=== PATIENT | female | born 1985 | race Two or more races ===

== ENCOUNTER 2021-02-19 07:14 | Outpatient (REF) | payer OTHER, SELFPAY ==
--- NOTE | 2021-02-19 07:41 | ECG_ITS ---
Test Reason : Z01.818 PREOP Blood Pressure : / mmHG Vent. Rate : 066 BPM Atrial Rate : 066 BPM P-R Int : 136 ms QRS Dur : 076 ms QT Int : 400 ms P-R-T Axes : 024 028 027 degrees QTc Int : 419 ms Normal sinus rhythm Normal ECG No previous ECGs available Referred By: Tammy Hagan Electronically Signed By:HIRA ONEIL MD
[2021-02-19 08:11] LABS: MANUAL DIFF FLAG NO
[2021-02-19 08:14] LABS: Basophils Percent Auto 0.5 % (0-2); Eosinophils Absolute Auto 0.1 X10*3/uL (0.0-0.4); Eosinophils Percent Auto 1.3 % (0-4); Hematocrit 39.5 % (37-47); Hemoglobin 12.9 g/dl (12.0-16.0); Imm Gran Abs Auto 0.03 X10*3/uL (0.00-0.03); Imm Gran Pct Auto 0.5 % (0.0-0.4); Lymphocytes Absolute Auto 2.1 X10*3/uL (1.2-4.9); Lymphocytes Percent Auto 34.1 % (20-40); Mean Corpuscular HGB Conc 32.7 g/dl (31.0-35.0); Mean Corpuscular Hemoglobin 30.7 pg (27.0-33.0); Monocytes Absolute Auto 0.4 X10*3/uL (0.1-1.2); Monocytes Percent Auto 6.8 % (2-11); Neutrophils Absolute Auto 3.4 X10*3/uL (2.0-8.3); Neutrophils Percent Auto 56.8 % (45-73); Platelet Count 202 X10*3/uL (160-400)
[2021-02-19 08:22] LABS: Prothrombin Time 11.9 SEC (10.8-13.0)
[2021-02-19 08:25] LABS: Partial Thromboplastin Time 34.6 SEC (24.1-38.0)
[2021-02-19 08:54] LABS: HIV AB/AG Nonreactive (Nonreactive); HIV Num 1 0.08 S/CO (0.00-0.99)
[2021-02-19 09:03] LABS: Alanine Aminotransferase 11 U/L (0-31); Albumin Level 4.3 g/dL (3.5-5.0); Alkaline Phosphatase 44 U/L (39-117); Anion Gap 12 (12-20); Aspartate Amino Transferase 11 U/L (5-31); Bilirubin Total 0.5 mg/dL (0.0-1.0); Blood Urea Nitrogen 18 mg/dL (9-16); Calcium 8.9 mg/dL (8.4-10.2); Carbon Dioxide 22 mmol/L (22-29); Chloride 108 mmol/L (96-108); Estimated Glomerular Filt Rate > 60; Glucose Fasting 92 mg/dL (60-99); Potassium 4.4 mmol/L (3.3-5.1); Sodium 138 mmol/L (135-145); Total Protein 7.1 g/dL (6.5-8.0)
[2021-02-19 09:06] LABS: HCG Quantitative < 2 mIU/mL
[2021-02-19 09:48] LABS: Estimated Average Glucose 103 mg/dL; Hemoglobin A1c % 5.2 %
== END 2021-02-19 07:15 | disposition home or self-care (01) ==
LOC: HO.LAB 07:14
PROVIDERS: PCP Internal Medicine; Visit Provider Internal Medicine
DX: Z01.818 Encounter for other preprocedural examination (principal); Z11.4 Encounter for screening for human immunodeficiency virus [HIV]
CPT/HCPCS: 36415; 80053; 83036; 84443; 84702; 85025; 85610; 85730; 87389; 93005

== ENCOUNTER → 2022-08-07 10:10 | Outpatient (REF) | payer OTHER, SELFPAY ==
--- NOTE | 2022-08-07 10:15 | ECG_ITS ---
Test Reason : obesity Blood Pressure : / mmHG Vent. Rate : 064 BPM Atrial Rate : 064 BPM P-R Int : 130 ms QRS Dur : 084 ms QT Int : 408 ms P-R-T Axes : 006 024 018 degrees QTc Int : 420 ms Normal sinus rhythm RSR' or QR pattern in V1 suggests right ventricular conduction delay Otherwise normal ECG When compared with ECG of 19-FEB-2021 07:50, No significant change was found Referred By: Tammy Hagan Electronically Signed By:ARASELI ONOFRE MD
[2022-08-07 10:22] LABS: MANUAL DIFF FLAG NO
[2022-08-07 10:56] LABS: Basophils Percent Auto 0.5 % (0-2); Eosinophils Absolute Auto 0.1 X10*3/uL (0.0-0.4); Eosinophils Percent Auto 1.2 % (0-4); Hematocrit 38.4 % (37.0-47.0); Hemoglobin 13.1 g/dl (12.0-16.0); Imm Gran Abs Auto 0.01 X10*3/uL (0.00-0.03); Imm Gran Pct Auto 0.2 % (0.0-0.4); Lymphocytes Absolute Auto 1.9 X10*3/uL (1.2-4.9); Lymphocytes Percent Auto 31.7 % (20-40); Mean Corpuscular HGB Conc 34.1 g/dl (31.0-35.0); Mean Platelet Volume 10.2 fL (9.4-12.3); Monocytes Absolute Auto 0.4 X10*3/uL (0.1-1.2); Neutrophils Absolute Auto 3.6 x10*3/uL (2.0-8.3); Neutrophils Percent Auto 60.4 % (45-73); Platelet Count 253 X10*3/uL (160-400); Red Blood Count 4.22 X10*6/uL (4.20-5.50); Red Cell Distribution Width 14.4 % (11.0-16.0)
[2022-08-07 11:01] LABS: Prothrombin Time 11.3 SEC (10.0-13.1)
[2022-08-07 11:03] LABS: Partial Thromboplastin Time 31.5 SEC (26.0-36.4)
[2022-08-07 11:13] LABS: Estimated Average Glucose 103 mg/dL; Hemoglobin A1c % 5.2 %
[2022-08-07 12:01] LABS: Alanine Aminotransferase 12 U/L (0-31); Albumin Level 4.5 g/dL (3.5-5.0); Alkaline Phosphatase 63 U/L (39-117); Anion Gap 15 (12-20); Aspartate Amino Transferase 15 U/L (5-31); Bilirubin Total 0.9 mg/dL (0.0-1.0); Blood Urea Nitrogen 12 mg/dL (9-16); Calcium 9.6 mg/dL (8.4-10.2); Carbon Dioxide 22 mmol/L (22-29); Chloride 107 mmol/L (96-108); Estimated Glomerular Filt Rate > 60; Glucose Fasting 87 mg/dL (60-99); Potassium 4.1 mmol/L (3.3-5.1); Sodium 140 mmol/L (135-145); Total Protein 7.6 g/dL (6.5-8.0)
[2022-08-07 12:09] LABS: HIV AB/AG Nonreactive (Nonreactive); HIV Num 1 0.08 S/CO (0.00-0.99)
[2022-08-07 12:13] LABS: Free T4 (Free Thyroxine) 1.01 ng/dL (0.71-1.85); HCG Quantitative < 2 mIU/mL; Thyroid Stimulating Hormone 1.16 uIU/mL (0.32-4.0)
== END ==
LOC: HO.CARD 10:10
PROVIDERS: PCP Internal Medicine; Visit Provider Internal Medicine
DX: Z01.818 Encounter for other preprocedural examination (principal); Z11.4 Encounter for screening for human immunodeficiency virus [HIV]; E66.9 Obesity, unspecified; E03.9 Hypothyroidism, unspecified
CPT/HCPCS: 36415; 80053; 83036; 84439; 84443; 84702; 85025; 85610; 85730; 87389; 93005

== ENCOUNTER 2022-08-12 06:42 | Outpatient (REF) | payer OTHER, SELFPAY ==
[2022-08-14 16:47] LABS: Triiodothyronine T3 Free 3.5 pg/mL (2.3-4.2)
== END 2022-08-12 06:43 | disposition home or self-care (01) ==
LOC: HO.LAB 06:42
PROVIDERS: PCP Internal Medicine; Visit Provider Internal Medicine
DX: Z01.818 Encounter for other preprocedural examination (principal); E66.9 Obesity, unspecified
CPT/HCPCS: 36415; 84481

== ENCOUNTER 2024-01-30 09:00 | Emergency (ER) | payer OTHER, SELFPAY ==
--- NOTE | ~2024-01-30 | CT_ITS ---
EXAMINATION: CT HEAD WITHOUT CONTRAST CLINICAL INFORMATION: Left facial numbness left arm numbness COMPARISON: None available. TECHNIQUE: Contiguous axial imaging was performed from the skull base to vertex without intravenous administration of contrast. This CT examination was performed using dose optimization techniques as appropriate, variously including the following: *Automated exposure control *Adjustment of mA and/or kV according to patient size (this includes techniques or standardized protocols for targeted exams where dose is matched to indication/reason for exam; i.e. extremities or head) *Use of iterative reconstruction technique DLP: 608 mGy-cm FINDINGS: There is no evidence of acute intracranial hemorrhage or territorial infarction. No abnormal mass effect or midline shift is seen. Webber to white matter differentiation is well preserved. No extra-axial fluid collections are identified. The ventricles are normal in size. There is no abnormal attenuation within the brain parenchyma. The osseous structures and soft tissues are normal. The mastoid air cells and visualized portions of the paranasal sinuses are well aerated. CT/CT head/brain wo IV con IMPRESSION: No acute intracranial pathology.
[2024-01-30 09:03] VITALS: BP 143/92; PULSE 80; RESP 16; TEMP 36.6; O2SAT 96; BMI 30.9
--- NOTE | 2024-01-30 09:15 | ED_ITS ---
HPI - General Adult General Chief complaint: General Medical Stated complaint: dizzy l side facial and arm numbness Time Seen by Provider: 01/30/24 09:15 Source: patient Mode of arrival: ambulatory Limitations: no limitations History of Present Illness HPI narrative: 38-year-old healthy female presents to the ER for evaluation of intermittent numbness and tingling to the left side of her face and her left arm that started yesterday. Patient reports she was at work when she had sudden onset of left- sided facial numbness and tingling. It lasted about half an hour and then self- resolved. At the same time she reports some numbness and tingling in her left lower arm and hand as well. This lasted 5 or 10 minutes and self-resolved. She had no associated weakness, difficulty speaking, facial droop. She reports this occurred again this morning with numbness and tingling in the left face and left arm and hand. It is now self resolved. She called her doctor who advised her to come to the emergency room for further evaluation and treatment. She reports history of some numbness and tingling in the bilateral lower extremities along with diffuse muscle weakness and joint aches for the last 2 weeks. This is overall improving. complaint: Left-sided facial numbness and tingling Onset (ago): day(s) (1) Location: face, left and upper extremity Radiation: non-radiation Severity: moderate Pain Consistency: intermittent and now resolved Relieving factors: none Exacerbating factors: none Associated symptoms: denies other symptoms Treatments prior to arrival: none Related Data Home Medications ?Medication ?Instructions ?Recorded ?Confirmed No Known Home Meds 02/28/21 02/28/21 Allergies Allergy/AdvReac Type Severity Reaction Status Date / Time No Known Allergies Allergy Verified 01/30/24 09:06 Review of Systems 2 Review of Systems: Yes all other systems are reviewed and are negative [facility] Past Medical History Medical History History of skin cancer Obesity (BMI 30.0-34.9) Surgical History History of tonsillectomy Family History Family History Brother Bipolar disorder Mental health disorder Sister Diabetes mellitus Social History Social History Housing: House Alcohol intake: current Alcohol intake frequency: a few times a month Patient Tobacco Use Status: Former Tobacco user Smoked in Last 30 Days: No e-Cigarette/Vaping Use: Never Used Use of substances other than those prescribed or required for medical reasons: Yes Substance Use Type: Marijuana Advance Directives: No Advance Directives Information Provided: No Do you have a plan to hurt others: No Plan Current occupational status: employed Cognitive needs: No Hearing needs: No Vision needs: No Physical Exam ED Vital Signs: Vital Signs - 24 hr 01/30/24 09:03 01/30/24 09:45 01/30/24 11:38 Temperature 97.9 F 97.9 F 97.8 F Pulse Rate 80 72 68 Respiratory Rate 16 15 18 Blood Pressure 143/92 H 123/93 H 113/75 Pulse Oximetry 96 100 Oxygen Delivery Method Room Air Room Air Room Air BMI result Body Mass Index 30.9 Appearance: Alert. Oriented X3. No acute distress. Head: normocephalic, atraumatic. Eyes: Pupils equal, round and reactive to light. ENT: Pharynx normal. No tonsillar swelling or exudate. Neck: Normal inspection. Neck supple. CVS: Normal heart rate and rhythm. Pulses normal. Respiratory: No respiratory distress. Breath sounds normal. Abdomen: Soft and nontender. +BS x4 Skin: Skin warm and dry. Normal skin color. Normal skin turgor. No rashes. Extremities: No lower extremity edema. No joint swelling. Neuro/psych: Oriented X 3. No motor deficit. No sensory deficit. CN II-XII intact. Normal speech and cognition. Normal iqdzkn-mh-rzub and wjla-xs-opvb bilaterally. Steady gait. Strength equal and symmetrical throughout. NIH Stroke Scale Internal: Initial- Upon Arrival Time: 09:32 Level of Consciousness: Alert Level of Consciousness Questions: Answers both questions correctly Level of Consciousness Commands: Performs both tasks correctly Best Gaze: Normal Visual: No visual loss Facial Palsy: Normal Motor Arm (Right): No drift Motor Arm (Left): No drift Motor Leg (Right): No drift Motor Leg (Left): No drift Limb Ataxia: Absent Sensory: Normal Best Language: No aphasia Dysarthia: Normal Extinction and Inattention: No abnormality Score: 0 Medical Decision Making Medical Decision Making [facility] Narrative: 38-year-old healthy female presents the ER for evaluation of 2 episodes of transient left-sided facial numbness and tingling along with left upper extremity numbness and tingling. Neuro exam is nonfocal. NIH is 0. No stroke risk factors. Baseline lab work was performed which shows normal CBC, normal TSH, normal electrolytes. Normal inflammatory markers. Head CT was normal. Patient has had no recurrent episodes of numbness and tingling. Results were discussed with the patient. At this time she is stable for discharge home with outpatient follow-up. She will follow up with her PCP on Thursday. She was given strict return precautions. Stable for discharge home. Differential Diagnosis Differential Diagnoses: The differential diagnosis associated with the presentation includes TIA, Flynn's palsy, MS, anxiety, vasculitis, electrolyte abnormality, cervical radiculopathy, CVA Admission/Observation Consideration of admission/observation: Escalation of care including admission/observation considered Lab Data [facility] Lab Attestation statement: I reviewed the patient's lab results. Normal CBC, normal electrolytes, negative inflammatory markers 01/30/24 09:55 01/30/24 09:55 Labs: Lab Results 01/30/24 01/30/24 Range/Units 09:55 09:56 WBC 5.4 (4.8-10.8) X10*3/uL RBC 4.29 (4.20-5.50) X10*6/uL Hgb 13.0 (12.0-16.0) g/dl Hct 39.0 (37.0-47.0) % MCV 90.9 (80.0-98.0) fL MCH 30.3 (27.0-33.0) pg MCHC 33.3 (31.0-35.0) g/dl RDW 14.5 (11.0-16.0) % Plt Count 266 (160-400) X10*3/uL MPV 10.0 (9.4-12.3) fL Immature Gran % (Auto) 0.2 (0.0-0.4) % Neut % (Auto) 66.0 (45-73) % Lymph % (Auto) 25.4 (20-40) % Maries % (Auto) 6.8 (2-11) % Eos % (Auto) 0.9 (0-4) % Baso % (Auto) 0.7 (0-2) % Lymph # (Auto) 1.4 (1.2-4.9) X10*3/uL Maries # (Auto) 0.4 (0.1-1.2) X10*3/uL Eos # (Auto) 0.1 (0.0-0.4) X10*3/uL Baso # (Auto) 0.0 (0.0-0.2) X10*3/uL Abs Immat Gran (auto) 0.01 (0.00-0.03) X10*3/uL Absolute Neuts (auto) 3.6 (2.0-8.3) x10*3/uL Absolute Nucleated RBC 0.000 (0.0-0.012) X10*3/uL Nucleated RBC % (auto) 0.0 (0.0-0.2) /100WBC ESR 10 (0-20) MM/HR Sodium 141 (135-145) mmol/L Potassium 3.9 (3.3-5.1) mmol/L Chloride 110 H (96-108) mmol/L Carbon Dioxide 25 (22-29) mmol/L Anion Gap 10 L (12-20) BUN 10 (9-16) mg/dL Creatinine 0.77 (0.5-1.4) mg/dL Estim Creat Clear Calc 115.2 Estimated GFR > 60 Random Glucose 89 (60-115) mg/dL Calcium 9.3 (8.4-10.2) mg/dL Total Bilirubin 0.5 (0.0-1.0) mg/dL AST 19 (5-31) U/L ALT 14 (0-31) U/L Alkaline Phosphatase 60 (39-117) U/L C-Reactive Protein 0.37 (< or = 0.50) mg/dL Total Protein 8.0 (6.5-8.0) g/dL Albumin 4.5 (3.5-5.0) g/dL TSH 1.95 (0.32-4.0) uIU/mL Urine Color Yellow Urine Appearance Clear Urine pH 6.0 (5.0-9.0) Ur Specific [place] 1.020 (1.005-1.025) Urine Protein Negative (Neg-Trace) mg/dL Urine Glucose (UA) Negative (Negative) mg/dL Urine Ketones Negative (Negative) mg/dL Urine Blood Negative (Negative) Urine Nitrite Negative (Negative) Ur Leukocyte Esterase Negative (Negative) Urine Test NEGATIVE (NEGATIVE) Independent Interpretation I performed an independent interpretation of an: CT Scan Interpretation: No edema or bleed, agree with radiology read Radiology Impression Discussion of test interpretation with radiology: I have reviewed the radiologist's reading. Radiologist Impression: EXAMINATION: CT HEAD WITHOUT CONTRAST CLINICAL INFORMATION: Left facial numbness left arm numbness COMPARISON: None available. TECHNIQUE: Contiguous axial imaging was performed from the skull base to vertex without intravenous administration of contrast. This CT examination was performed using dose optimization techniques as appropriate, variously including the following: *Automated exposure control *Adjustment of mA and/or kV according to patient size (this includes techniques or standardized protocols for targeted exams where dose is matched to indication/reason for exam; i.e. extremities or head) *Use of iterative reconstruction technique DLP: 608 mGy-cm FINDINGS: There is no evidence of acute intracranial hemorrhage or territorial infarction. No abnormal mass effect or midline shift is seen. Webber to white matter differentiation is well preserved. No extra-axial fluid collections are identified. The ventricles are normal in size. There is no abnormal attenuation within the brain parenchyma. The osseous structures and soft tissues are normal. The mastoid air cells and visualized portions of the paranasal sinuses are well aerated. CT/CT head/brain wo IV con IMPRESSION: No acute intracranial pathology. External Record Review External record reviewed: Prior outpatient labs and Prior outpatient radiology Prescription Management I considered prescription management with: Other (Baby aspirin) Critical Care Time Critical Care Time Critical Care Time: No Discharge Plan Discharge Clinical Impression: Paresthesia Patient Disposition: Home, Self-Care Instructions: Paresthesia (ED) Additional Instructions: Your lab workup today and CT scan were unremarkable. Recommend starting a baby aspirin. Recommend following up with your doctor for further evaluation and treatment. If you develop new or worsening symptoms call 911 or come back to the ER for further evaluation. Prescriptions: No Action No Known Home Meds Referrals: Tammy Hagan MD [Primary Care Provider] - Print Language: Albanian
[2024-01-30 09:45] VITALS: BP 123/93; PULSE 72; RESP 15; TEMP 36.6; O2SAT 100
[2024-01-30 10:05] LABS: MANUAL DIFF FLAG NO
[2024-01-30 10:07] LABS: Basophils Percent Auto 0.7 % (0-2); Eosinophils Absolute Auto 0.1 X10*3/uL (0.0-0.4); Eosinophils Percent Auto 0.9 % (0-4); Imm Gran Abs Auto 0.01 X10*3/uL (0.00-0.03); Imm Gran Pct Auto 0.2 % (0.0-0.4); Lymphocytes Absolute Auto 1.4 X10*3/uL (1.2-4.9); Lymphocytes Percent Auto 25.4 % (20-40); Mean Corpuscular HGB Conc 33.3 g/dl (31.0-35.0); Mean Corpuscular Hemoglobin 30.3 pg (27.0-33.0); Mean Corpuscular Volume 90.9 fL (80.0-98.0); Monocytes Absolute Auto 0.4 X10*3/uL (0.1-1.2); Monocytes Percent Auto 6.8 % (2-11); Neutrophils Absolute Auto 3.6 x10*3/uL (2.0-8.3); Platelet Count 266 X10*3/uL (160-400); Red Blood Count 4.29 X10*6/uL (4.20-5.50); Red Cell Distribution Width 14.5 % (11.0-16.0); White Blood Count 5.4 X10*3/uL (4.8-10.8)
[2024-01-30 10:09] LABS: Appearance Urine Clear; Color Urine Yellow; Glucose Urine UA Negative (Negative); Leukocyte Esterase Urine Negative (Negative); Nitrite Urine Negative (Negative); UPreg QC Valid YES; Urine Blood Negative (Negative); Urine Ketones Negative (Negative); Urine Pregnancy NEGATIVE (NEGATIVE); Urine Protein Negative (Neg-Trace)
[2024-01-30 10:22] LABS: Alanine Aminotransferase 14 U/L (0-31); Albumin Level 4.5 g/dL (3.5-5.0); Alkaline Phosphatase 60 U/L (39-117); Anion Gap 10 (12-20); Aspartate Amino Transferase 19 U/L (5-31); Bilirubin Total 0.5 mg/dL (0.0-1.0); Blood Urea Nitrogen 10 mg/dL (9-16); Calcium 9.3 mg/dL (8.4-10.2); Carbon Dioxide 25 mmol/L (22-29); Chloride 110 mmol/L (96-108); Creatinine Clr Calc Pharmacy 115.2; Estimated Glomerular Filt Rate > 60; Glucose Random 89 mg/dL (60-115); Potassium 3.9 mmol/L (3.3-5.1); Sodium 141 mmol/L (135-145)
[2024-01-30 10:27] LABS: C Reactive Protein 0.37 mg/dL (< or = 0.50)
[2024-01-30 10:43] LABS: TSH reflex Free T4 1.95 uIU/mL (0.32-4.0)
[2024-01-30 10:58] LABS: Erythrocyte Sedimentation Rate 10 MM/HR (0-20)
[2024-01-30 11:38] VITALS: BP 113/75; PULSE 68; RESP 18; TEMP 36.6
[2024-01-30 12:06] VITALS: BP 108/61; PULSE 71; RESP 16; TEMP 36.4; O2SAT 100
[2024-01-30 12:08] VITALS: BP 108/60; PULSE 71; RESP 16; TEMP 36.4; O2SAT 100
== END 2024-01-30 12:09 | disposition home or self-care (01) ==
PROVIDERS: Physician Assistant; Emergency Provider Student in an Organized Health Care Education/Training Program; PCP Internal Medicine
DX: R20.2 Paresthesia of skin (principal)
CPT/HCPCS: 36415; 70450; 80053; 81003; 81025; 84443; 85025; 85652; 86140; 99284

== ENCOUNTER 2024-02-03 11:01 | Outpatient (AMB) | payer OTHER, SELFPAY ==
--- NOTE | 2024-02-03 11:50 | A.OFFPC_ITS ---
Vital Signs 02/03/24 11:54 Height 5 ft 8 in Weight 200 lb BMI 30.4 BP 112/80 Blood Pressure Location Lt brachial Position Sitting Pulse 77 Pulse Source Pulse Oximeter Pulse Oximetry (%) 98 Oxygen Delivery Method Room Air Intake Visit Reasons: ED f/u Intake Note: Pt is here today for her ED f/u [facility] [place] Allergies No Known Allergies Allergy (Verified 02/09/24 03:12) Medication List - Last Reconciled 02/09/24 by Tammy Hagan MD tizanidine 4 mg PO BEDTIME PRN Tobacco use date assessed: 02/03/24 Dental Screening Dental Screen Date: 02/03/24 Did you have a dental visit in the last 12 months?: Yes Did you have a dental problem in the last 6 months where you did not have access to dental care?: No Was dental information given to patient?: Patient has dentist HPI ED f/u HPI Details 38-year-old healthy female presents to [facility] ER for evaluation of intermittent numbness and tingling to the left side of her face and her left arm that started yesterday. Patient reports she was at work when she had sudden onset of left-sided facial numbness and tingling. It lasted about half an hour and then self-resolved. At the same time she reports some numbness and tingling in her left lower arm and hand as well. This lasted 5 or 10 minutes and self- resolved. She had no associated weakness, difficulty speaking, facial droop. She reports this occurred again this morning with numbness and tingling in the left face and left arm and hand. It is now self resolved. 2 episodes of transient left-sided facial numbness and tingling along with left upper extremity numbness and tingling. Neuro exam is nonfocal. No stroke risk factors. Baseline lab work was performed which shows normal CBC, normal TSH, normal electrolytes. Normal inflammatory markers. Head CT was normal. Patient has had no recurrent episodes of numbness and tingling. Presenting symptoms at the ER has now resolved, she is now here with a different complaint of pain and stiffness in her upper back and posterior neck, nonradiating, accompanied by low back strain worse with activity. She has tried [id number] NSAIDs which has not afforded much relief. Denies any accompanying urinary or stool incontinence, no weakness, no numbness or tingling in extremities reported. PFSH Medical History Upper back strain Lumbago Obesity (BMI 30.0-34.9) History of skin cancer Surgical History History of tonsillectomy Family History Brother Bipolar disorder Mental health disorder Sister Diabetes mellitus Social History Housing: House Alcohol intake: current Alcohol intake frequency: a few times a month Patient Tobacco Use Status: Former Tobacco user e-Cigarette/Vaping Use: Never Used Substance Use Type: Marijuana Current occupational status: employed Cognitive needs: No Hearing needs: No Vision needs: No Questionnaire PHQ-9 Over the last 2 weeks, how often have you been bothered by any of the following problems? 1. Little interest or pleasure in doing things: not at all 2. Feeling down, depressed, or hopeless: not at all 3. Trouble falling or staying asleep, or sleeping too much: not at all 4. Feeling tired or having little energy: not at all 5. Poor appetite or overeating: not at all 6. Feeling bad about yourself - or that you are a failure or have let yourself or your family down: not at all 7. Trouble concentrating on things, such as reading the newspaper or watching television: not at all 8. Moving or speaking so slowly that other people could have noticed. Or the opposite - being so fidgety or restless that you have been moving around a lot more than usual: not at all 9. Thoughts that you would be better off or of hurting yourself in some way: not at all Total score: 0 Depression Screening Interpretation: Negative Depression Screening Done: Yes [id number] - PHQ-9 Billing: Yes Source: Developed by Drs. Tacho Harman, Nely Abdi, Valeriy Ramesh and colleagues, with an educational rani from [employer]. Thrive Questionnaire Date Thrive assessed: 02/03/24 I am a: Patient What is your living situation today?: I have a steady place to live Within the past 12 months, did the food you bought not last and you didn't have the money to get more?: Never true Within the past 12 months, did you worry whether your food would run out before you got money to buy more?: Never true Do you have trouble paying for medicines?: No Do you have trouble getting transportation to medical appointments?: No Do you have trouble paying your heating and electricity bill?: No Do you have trouble taking care of your child, family member or friend?: No Do you have trouble with day-to-day activities such as bathing, preparing meals, shopping, managing finances, etc.?: No Are you currently unemployed and looking for a job?: No Are you interested in more education?: No THRIVE Score: 0 AUDIT C Alcohol Use Questionnaire (AUDIT-C) 1. How often do you have a drink containing alcohol?: Monthly or less 2. How many drinks containing alcohol do you have on a typical day when you are drinking?: 1 or 2 3. How often do you have six or more drinks on one occasion?: Never Total Score: 1 JAREN-7 AMB Questionnaire JAREN-7 Date JAREN - 7 assessed: 02/03/24 Feeling nervous, anxious, or on edge: 1 = Several days Not being able to stop or control worryin = Several days Worrying too much about different things: 1 = Several days Trouble relaxin = Several days Being so restless that it is hard to sit still: 0 = Not at all Becoming easily annoyed or irritable: 0 = Not at all Feeling afraid as if something awful might happen: 0 = Not at all Total JAREN-7 score (0-4 normal; 5-9 mild; 10-14 moderate; 15-21 severe): 4 Source: Developed by Drs. Tacho Harman, Nely Abdi, Valeriy Ramesh and colleagues, with an educational rani from [employer]. JAREN-7 Assessment Billing JAREN-7 Assessment Tool: JAREN-7 Assessment [id number] Review of Systems Const Reports as per HPI Eyes Denies change in vision ENT Details: Complaining of some scratchiness in her throat Card Reports no additional complaints Resp Details: Occasional dry cough, no shortness of breath, no wheezing GI Reports no additional complaints Musc Details: Tender to palpation over both trapezius muscle and paraspinal muscles in lumbar spine, negative straight leg raising sign Reports as per HPI Skin/Breast Denies lesions Neuro Reports no additional complaints Physical exam (Primary Care) Vital Signs: Last Vital Signs Pulse 77 02/03/24 11:54 BP 112/80 02/03/24 11:54 Pulse Ox 98 02/03/24 11:54 Oxygen Delivery Method Room Air 02/03/24 11:54 BMI result Body Mass Index 30.4 Tobacco/Smoking Status: Tobacco use Status Tobacco use date assessed 02/03/24 02/03/24 11:55 Patient Tobacco Use Status Former Tobacco user 02/03/24 11:51 e-Cigarette/Vaping Use Never Used 02/03/24 11:51 PHQ-9: PHQ-9 Score PHQ-9: Total score 0 02/03/24 12:40 Depression Screening Interpretation: Negative Thrive Assessment: Date of Thrive Assessment Date Thrive assessed 02/03/24 02/03/24 11:58 Const General: no acute distress, alert and Physically active Nutritional Appearance: obese Orientation/consciousness: patient oriented x3 HENMT Head: Yes normocephalic and Yes atraumatic Ears: external ears normal General nose exam: Normal external nose present Face and sinus: Yes face symmetric Mouth: Normal oral and palatal mucosa present, oropharynx normal and moist mucous membranes Throat: Yes posterior oropharynx normal and Yes other (No exudates noted in tonsillar crypts) Eyes General: appearance normal, both eyes and all related structures Neck Neck: Yes full ROM, Yes no lymphadenopathy and Yes supple Resp Auscultation: clear to auscultation bilaterally Cardio Other: S1 and S2 present regular rate and rhythm GI Palpation (GI): Soft to palpation, nontender, no guarding and no masses Auscultation: normal bowel sounds Back/Spine/Pelvis Other: Tender to palpation over both trapezius muscle and paraspinal muscles in lumbar area, negative straight leg raising sign Skin General skin exam: no rashes or lesions noted Neuro General: patient oriented x3, moves all extremities, Normal light touch and pain sensation, no focal motor deficits and CN's II-XI intact bilaterally Gait exam (Neuro): Normal gait present Extrem General: Yes full ROM, Yes no clubbing, cyanosis or edema, Yes no calf tenderness and Yes normal gait Assessment and Plan Assessment & Plan (1) Lumbago: Code(s): M54.50 - Low back pain, unspecified Qualifiers: Chronicity: acute Back pain laterality: unspecified Sciatica presence: without sciatica Qualified Code(s): M54.50 - Low back pain, unspecified (2) Upper back strain: Code(s): S29.012A - Strain of muscle and tendon of back wall of thorax, initial encounter Qualifiers: Encounter type: initial encounter Qualified Code(s): S29.012A - Strain of muscle and tendon of back wall of thorax, initial encounter Orders: Referrals Chiropractic Referral M54.50 - Low back pain, unspecified, S29.012A - Strain of muscle and tendon of back wall of thorax, initial encounter Medications: New tizanidine 4 mg PO BEDTIME PRN 30 tabs 0RF muscle spasticity Coding Level of Care Code Est Pt Level 4 (12001) Diagnoses Acute low back pain without sciatica, unspecified back pain laterality M54.50 Chronicity: acute Back pain laterality: unspecified Sciatica presence: without sciatica Upper back strain, initial encounter S29.012A Encounter type: initial encounter Additional Codes JAREN-7 Assessment Billing - JAREN-7 Assessment Tool: JAREN-7 Assessment [id number] ([id number])
[2024-02-03 11:54] VITALS: BP 112/80; PULSE 77; O2SAT 98; BMI 30.4
== END 2024-02-03 12:41 | disposition home or self-care (01) ==
PROVIDERS: PCP Internal Medicine; Visit Provider Internal Medicine
DX: M54.50 Low back pain, unspecified (principal); S29.012A Strain of muscle and tendon of back wall of thorax, initial encounter
CPT/HCPCS: 99214

== ENCOUNTER 2025-09-04 08:53 | Outpatient (REF) | payer OTHER, SELFPAY ==
[2025-09-04 11:46] LABS: ~Hepatitis B Surface Antibody REACTIVE (Nonreactive)
[2025-09-05 09:19] LABS: Rubeola IgG (Measles) >300.00 AU/mL
[2025-09-07 11:49] LABS: TS Negative Control Passed; TS Panel A 0; TS Panel B 1; TS Positive Control Passed; TSpotTB Negative (Negative)
== END 2025-09-04 08:54 | disposition home or self-care (01) ==
LOC: HO.HMGCLDS 08:53
PROVIDERS: PCP Internal Medicine; Visit Provider Internal Medicine
DX: Z13.31 Encounter for screening for depression (principal); Z13.39 Encounter for screening examination for other mental health and behavioral disorders; Z11.1 Encounter for screening for respiratory tuberculosis; Z78.9 Other specified health status; R76.0 Raised antibody titer
CPT/HCPCS: 36415; 86481; 86706; 86735; 86762; 86765; 86787; 96127

== ENCOUNTER 2025-09-04 09:54 | Outpatient (AMB) | payer OTHER, SELFPAY ==
[2025-09-04 10:21] VITALS: BP 102/70; PULSE 66; RESP 16; TEMP 36.6; O2SAT 100; BMI 26.6
--- NOTE | 2025-09-04 10:21 | MHC.PC.OV ---
Vital Signs 09/04/25 10:21 Height 5 ft 8 in Weight 175 lb BMI 26.6 BP 102/70 Blood Pressure Location Lt brachial Position Sitting Respiration 16 Pulse 66 Pulse Source Pulse Oximeter Temp 97.8 F Temp Source Oral Pulse Oximetry (%) 100 Oxygen Delivery Method Room Air Intake Visit Reasons: Annual PE Executive Director Of Marketing Required: No Allergies No Known Allergies Allergy (Verified 09/04/25 10:41) Medication List - Last Reconciled 09/04/25 by Tammy Hagan MD No Known Home Meds Tobacco use date assessed: 09/04/25 Dental Screening Dental Screen Date: 09/04/25 Did you have a dental visit in the last 12 months?: No Did you have a dental problem in the last 6 months where you did not have access to dental care?: No Was dental information given to patient?: Patient has dentist HPI Annual PE HPI Details 40-year-old lady here today for her physical exam. She also needs however student health record completed for school She has been once and has one child who is 24 years old. The patient has a history of smoking at age 16 but has since quit. Health maintenance history includes a normal Pap smear in May 2024 and a mammogram last year. Vaccinations are up to date, including a recent two-dose Hepatitis B series, a flu shot in July, and an MMR series completed in 2016. The patient's last Tdap was in 2016. [facility] Medical History (Updated 09/10/25 @ 16:21 by Tammy Hagan MD) Overweight (BMI 25.0-29.9) History of skin cancer Surgical History History of liposuction of abdomen History of tonsillectomy Family History Brother Bipolar disorder Mental health disorder Sister Diabetes mellitus Social History Housing: House Alcohol intake: current Alcohol intake frequency: a few times a month Patient Tobacco Use Status: Former Tobacco user e-Cigarette/Vaping Use: Never Used Substance Use Type: Marijuana Current occupational status: employed Cognitive needs: No Hearing needs: No Vision needs: No Questionnaire PHQ-9 Over the last 2 weeks, how often have you been bothered by any of the following problems? 1. Little interest or pleasure in doing things: not at all 2. Feeling down, depressed, or hopeless: not at all 3. Trouble falling or staying asleep, or sleeping too much: not at all 4. Feeling tired or having little energy: not at all 5. Poor appetite or overeating: not at all 6. Feeling bad about yourself - or that you are a failure or have let yourself or your family down: not at all 7. Trouble concentrating on things, such as reading the newspaper or watching television: not at all 8. Moving or speaking so slowly that other people could have noticed. Or the opposite - being so fidgety or restless that you have been moving around a lot more than usual: not at all 9. Thoughts that you would be better off or of hurting yourself in some way: not at all Total score: 0 Depression Screening Interpretation: Negative Depression Screening Done: Yes 21230 - PHQ-9 Billing: Yes Source: Developed by Drs. Tacho Harman, Nely Abdi, Valeriy Ramesh and colleagues, with an educational rani from [employer]. Thrive Questionnaire Date Thrive assessed: 09/04/25 I am a: Patient What is your living situation today?: I have a steady place to live Within the past 12 months, did the food you bought not last and you didn't have the money to get more?: Never true Within the past 12 months, did you worry whether your food would run out before you got money to buy more?: Never true Do you have trouble paying for medicines?: No Do you have trouble getting transportation to medical appointments?: No Do you have trouble paying your heating and electricity bill?: No Do you have trouble taking care of your child, family member or friend?: No Do you have trouble with day-to-day activities such as bathing, preparing meals, shopping, managing finances, etc.?: No Are you currently unemployed and looking for a job?: No Are you interested in more education?: No Please select the resources that you would like help with: None Currently or been in a relationship where the following occur: No concerns reported THRIVE Score: 0 AUDIT C Alcohol Use Questionnaire (AUDIT-C) 1. How often do you have a drink containing alcohol?: Monthly or less 2. How many drinks containing alcohol do you have on a typical day when you are drinking?: 1 or 2 3. How often do you have six or more drinks on one occasion?: Never Total Score: 1 Score Reviewed/Action Taken: Yes JAREN-7 AMB Questionnaire JAREN-7 Date JAREN - 7 assessed: 09/04/25 Feeling nervous, anxious, or on edge: 0 = Not at all Not being able to stop or control worryin = Not at all Worrying too much about different things: 0 = Not at all Trouble relaxin = Not at all Being so restless that it is hard to sit still: 0 = Not at all Becoming easily annoyed or irritable: 0 = Not at all Feeling afraid as if something awful might happen: 0 = Not at all Total JAREN-7 score (0-4 normal; 5-9 mild; 10-14 moderate; 15-21 severe): 0 Source: Developed by Drs. Tacho Harman, Nely Abdi, Valeriy Ramesh and colleagues, with an educational rani from [employer]. JAREN-7 Assessment Billing JAREN-7 Assessment Tool: JAREN-7 Assessment 68750 Review of Systems Const Reports as per HPI and Reports weight loss Eyes Denies change in vision ENT Reports no additional complaints Card Reports no additional complaints Resp Reports no additional complaints GI Reports no additional complaints Reports no additional complaints Musc Reports no additional complaints Skin/Breast Denies lesions Neuro Reports no additional complaints Psych Reports no additional complaints Endo Reports no additional complaints Mahesh/Lymph Reports no additional complaints Aller/Immun Reports no additional complaints Physical exam (Primary Care) Vital Signs: Last Vital Signs Temp 97.8 F 09/04/25 10:21 Pulse 66 09/04/25 10:21 Resp 16 09/04/25 10:21 BP 102/70 09/04/25 10:21 Pulse Ox 100 09/04/25 10:21 Oxygen Delivery Method Room Air 09/04/25 10:21 BMI result Body Mass Index 26.6 Tobacco/Smoking Status: Tobacco use Status Tobacco use date assessed 09/04/25 09/04/25 10:22 Patient Tobacco Use Status Former Tobacco user 09/04/25 10:22 e-Cigarette/Vaping Use Never Used 09/04/25 10:22 PHQ-9: PHQ-9 Score PHQ-9: Total score 0 09/04/25 10:44 Depression Screening Interpretation: Negative Thrive Assessment: Date of Thrive Assessment Date Thrive assessed 09/04/25 09/04/25 10:26 Currently or been in a relationship where the following occur: No concerns reported Const General: no acute distress and alert Nutritional Appearance: obese Orientation/consciousness: patient oriented x3 HENMT Head: Yes normocephalic Ears: external ears normal General nose exam: Normal external nose present Face and sinus: Yes face symmetric Mouth: Normal oral and palatal mucosa present and moist mucous membranes Eyes General: appearance normal, both eyes and all related structures Neck Neck: Yes full ROM, Yes no lymphadenopathy and Yes supple Chest Breast/axilla palpation: normal palpation of the breasts Resp Auscultation: clear to auscultation bilaterally Cardio Other: S1 and S2 present regular rate and rhythm GI Palpation (GI): Soft to palpation, nontender, no guarding and no masses Auscultation: normal bowel sounds General: Yes no CVA tenderness Back/Spine/Pelvis Back: no CVA tenderness and No back tenderness Skin General skin exam: no rashes or lesions noted Neuro General: patient oriented x3, moves all extremities, Normal light touch and pain sensation, no focal motor deficits and CN's II-XI intact bilaterally Gait exam (Neuro): Normal gait present Extrem General: Yes full ROM, Yes no clubbing, cyanosis or edema, Yes no calf tenderness and Yes normal gait Psych Appearance: grossly normal Mental Status: mental status grossly normal Speech and movement: Normal speech and movement present Affect: normal affect Coding Level of Care Code Est Pt Prev Care 40-64y(11087) Diagnoses Annual visit for general adult medical examination with abnormal findings Z. Additional Codes JAREN-7 Assessment Billing - JAREN-7 Assessment Tool: JAREN-7 Assessment 73989 ([id number]) PHQ-9 - 99659 - PHQ-9 Billing: Yes ([id number]) Assessment & Plan Assessment & Plan (1) Annual visit for general adult medical examination with abnormal findings: Code(s): Z00.01 - Encounter for general adult medical examination with abnormal findings Plan: Will check appropriate labs. Continue regular dental visit every 6 months and regular eye exams, at least every 2 years. Take adequate calcium in diet and vitamin-D 3 at 2000 IU per cap once a day, in addition to weight-bearing exercises to help maintain good muscle tone and weight control. Instructed to do self-breast exam, and recommended to get yearly mammogram. Up-to-date with her vaccinations Orders: Orders Glucose Fasting 09/04/25 Z13.1 - Encounter for screening for diabetes mellitus, Z13.220 - Encounter for screening for lipoid disorders Lipid Panel 09/04/25 Z13.1 - Encounter for screening for diabetes mellitus, Z13.220 - Encounter for screening for lipoid disorders
== END 2025-09-04 11:29 | disposition home or self-care (01) ==
LOC: HO.HMCC 09:55
PROVIDERS: PCP Internal Medicine; Visit Provider Internal Medicine
DX: Z00.01 Encounter for general adult medical examination with abnormal findings (principal)

== ENCOUNTER 2025-09-11 08:59 | Outpatient (REF) | payer OTHER, SELFPAY ==
[2025-09-11 14:03] LABS: Cholesterol 158 mg/dL (<200); HDL Cholesterol 71 mg/dL (>40); Triglycerides 40 mg/dL (<150)
[2025-09-13 18:23] LABS: Quantiferon TB Gold Plus 1 NEGATIVE (NEGATIVE); TB Test (QFT) Mitogen -Nil 6.85 IU/mL; TB Test (QFT) Nil 0.01 IU/mL; TB Test (QFT) Plus TB1 -Nil 0.00 IU/mL; TB Test (QFT) Plus TB2 -Nil 0.00 IU/mL
== END 2025-09-11 09:00 | disposition home or self-care (01) ==
LOC: HO.HMGCLDS 08:59
PROVIDERS: PCP Internal Medicine; Visit Provider Internal Medicine
DX: Z11.1 Encounter for screening for respiratory tuberculosis (principal); Z13.1 Encounter for screening for diabetes mellitus; Z13.220 Encounter for screening for lipoid disorders; Z13.6 Encounter for screening for cardiovascular disorders
CPT/HCPCS: 36415; 80061; 82947; 86480; 90471; 90707

== ENCOUNTER 2025-09-11 08:59 | Outpatient (AMB) | payer OTHER, SELFPAY ==
--- NOTE | 2025-09-11 09:28 | AM.OFFVISNUR ---
Intake Visit Reasons: MMR vaccine Allergies No Known Allergies Allergy (Verified 09/04/25 10:41) Nursing Note Pt came into the office for MMR vaccine to left deltoid. Pt tolerated well. Immunizations M-M-R II (PF) 1,000-12,500 TCID50/0.5 mL subcutaneous solution Performing Provider: Tammy Hagan MD Performing Location: [facility] [place] [facility] Administered by: Jaqui Painter on 09/11/25 09:29 Dose Route Admin Location Dispensed Lot Number Expiration Date [facility] [place] [employer] House Attendant 0.5 mL subcut Left Arm 0.5 mL [id number] 04/05/26 [id number] [employer] Total Dispensed Waste 0.5 mL 0 % VIS Given Date VIS Provided VIS Publication Date 09/11/25 Single Vaccine 24 Eligibility Eligibility Date Funding Source Not [facility] Eligible 09/11/25 Private Assessment & Plan Assessment & Plan Orders: Orders Quantiferon TB Gold Plus 1 Today Z11.1 - Encounter for screening for respiratory tuberculosis MMR Immunization Today Z23 - Encounter for immunization Coding
== END 2025-09-11 10:18 | disposition home or self-care (01) ==
PROVIDERS: PCP Internal Medicine; Visit Provider Internal Medicine
DX: Z23 Encounter for immunization (principal)